=== PATIENT | male | born 1950 | race Hispanic/Latino ===

== ENCOUNTER → 2018-03-17 | Outpatient (CLI) | payer MEDICARE ==
[~2018-03-17] VITALS: Ht 167.6 cm; Wt 83.5 kg
[~2018-03-17] MED LIST: REGADENOSON 0.4 MG/5 ML PF SYG IVP SCH
== END | disposition home or self-care (01) ==
LOC: SHCH 08:38
PROVIDERS: ATTEND Internal Medicine Cardiovascular Disease
DX: R00.2 Palpitations (principal); R55 Syncope and collapse; I10 Essential (primary) hypertension; E78.5 Hyperlipidemia, unspecified
CPT/HCPCS: 78452; 93017; 96374; A9500 ×2; J2785

== ENCOUNTER → 2018-04-07 | Outpatient (CLI) | payer MEDICARE | END | disposition home or self-care (01) | LOC: SHCH 03-20 08:56 | PROVIDERS: ATTEND Internal Medicine Cardiovascular Disease | DX: R00.2 Palpitations (principal) | CPT/HCPCS: 93306 ==

== ENCOUNTER → 2018-06-16 | Outpatient (CLI) | payer MEDICARE ==
[~2018-06-16] MED LIST changes: +ASPI-555 PO; +ATOR10TA69 PO; +METO25TA6 PO; -REGADENOSON 0.4 MG/5 ML PF SYG IVP SCH; +TAMS0.4C32 PO
== END | disposition home or self-care (01) ==
LOC: RAH 09:19
PROVIDERS: ATTEND Family Medicine
DX: R10.9 Unspecified abdominal pain (principal)
CPT/HCPCS: 76700

== ENCOUNTER → 2018-09-16 | Outpatient (CLI) | payer MEDICARE | END | disposition home or self-care (01) | LOC: SHCH 14:49 | PROVIDERS: ATTEND Internal Medicine Cardiovascular Disease | DX: I51.7 Cardiomegaly (principal); I25.10 Atherosclerotic heart disease of native coronary artery without angina pectoris | CPT/HCPCS: 93306 ==

== ENCOUNTER → 2019-05-31 | Outpatient (CLI) | payer MEDICARE | END | disposition home or self-care (01) | LOC: SHCH 13:30 | PROVIDERS: ATTEND Internal Medicine Cardiovascular Disease | DX: I51.7 Cardiomegaly (principal) | CPT/HCPCS: 93306 ==

== ENCOUNTER → 2019-06-09 | Outpatient (CLI) | payer MEDICARE ==
--- NOTE | 2019-06-05 12:06 | NUR ---
PT WAS A NO SHOW FOR THIS DATE OF SERVICE
--- NOTE | 2019-06-08 11:00 | NUR ---
PT WAS A NO SHOW ON THIS DATE OF SERVICE
[~2019-06-09] VITALS: Ht 167.6 cm; Wt 89.4 kg
[~2019-06-09] MED LIST changes: +REGADENOSON 0.4 MG/5 ML PF SYG IVP SCH
== END | disposition home or self-care (01) ==
LOC: SHCH 08:08
PROVIDERS: ATTEND Internal Medicine Cardiovascular Disease
DX: R07.9 Chest pain, unspecified (principal)
CPT/HCPCS: 78452; 93017; 96374; A9500 ×2; J2785

== ENCOUNTER → 2019-11-18 | Outpatient (CLI) | payer MEDICARE ==
[~2019-11-18] MED LIST changes: -ASPI-555 PO; +ASPI-556 PO; -REGADENOSON 0.4 MG/5 ML PF SYG IVP SCH
== END | disposition home or self-care (01) ==
LOC: SHCH 10:35
PROVIDERS: ATTEND Internal Medicine Cardiovascular Disease
DX: I65.23 Occlusion and stenosis of bilateral carotid arteries (principal)
CPT/HCPCS: 93880

== ENCOUNTER 2020-08-14 12:23 | Emergency (ER) | payer OTHER, MEDICARE ==
[2020-08-14] MEDS ORDERED: KETOROLAC TROMETHAMINE 30MG/ML ONE (13:33)
[2020-08-14] MEDS ORDERED: ACETAMINOPHEN-CODEINE 300/30MG TAB ONE (13:34)
== END 2020-08-14 14:50 | disposition home or self-care (01) ==
LOC: EDH 12:23
DX: M54.2 Cervicalgia (principal); I10 Essential (primary) hypertension; E78.00 Pure hypercholesterolemia, unspecified
CPT/HCPCS: 72040; 93005; 96372; 99283; J1885

== ENCOUNTER 2021-03-22 22:14 | Emergency (ER) | payer OTHER, MEDICARE ==
[2021-03-22 23:01] LABS: BASOPHILS % (AUTO) 0.7 % (0.0-5.0); EOSINOPHILS % (AUTO) 1.1 % (0.0-8.0); HEMATOCRIT 39.9 % (42-54); LYMPHOCYTES % (AUTO) 18.9 % (21.0-51.0); MEAN CORPUSCULAR HEMOGLOBIN 26.9 pg (27.0-33.0); MEAN CORPUSCULAR HGB CONC 32.6 g/dL (32.0-36.0); MEAN CORPUSCULAR VOLUME 82.4 fL (79-99); MONOCYTES % (AUTO) 9.2 % (3.0-13.0); NEUTROPHILS % (AUTO) 69.8 % (40.0-77.0); PLATELET COUNT (AUTO) 172 K/uL (130-400); RED BLOOD CELL COUNT(AUTO) 4.84 MIL/uL (4.50-6.20); WHITE BLOOD COUNT (AUTO) 7.2 K/uL (4.8-10.8)
[2021-03-22 23:09] LABS: POTASSIUM 4.2 mmol/L (3.5-5.1)
[2021-03-22 23:11] LABS: INR 0.95 (0.85-1.15); PROTHROMBIN TIME 10.4 SEC (9.6-11.6)
[2021-03-22 23:13] LABS: ALBUMIN 3.7 g/dL (3.5-5.0); BILIRUBIN,TOTAL 0.2 mg/dL (0.2-1.0); TOTAL PROTEIN, SERUM 7.2 g/dL (6.0-8.3)
[2021-03-22 23:38] LABS: B-TYPE NATRIURETIC PEPTIDE 33 pg/mL (0-100)
[2021-03-22 23:57] LABS: APPEARANCE,URINE Clear (CLEAR); BILIRUBIN,URINE Negative (NEGATIVE); COLOR,URINE Yellow (YELLOW); GLUCOSE, URINE (UA) Negative (NEGATIVE); KETONES,URINE Negative (NEGATIVE); LEUKOCYTE ESTERASE ,URINE Negative (NEGATIVE); NITRATE,URINE Negative (NEGATIVE); OCCULT BLOOD,URINE Negative (NEGATIVE); PH,URINE 5.5 (5.0-8.0); PROTEIN,URINE Negative (NEGATIVE)
[2021-03-23 00:04] LABS: AMPHET/METH SCREEN,URINE NEGATIVE (NEGATIVE); BARBITURATE SCREEN, URINE NEGATIVE (NEGATIVE); BENZODIAZEPINES SCREEN,URINE NEGATIVE (NEGATIVE); CANNABINOID SCREEN,URINE NEGATIVE (NEGATIVE); COCAINE SCREEN,URINE NEGATIVE (NEGATIVE); OPIATE SCREEN,URINE NEGATIVE (NEGATIVE); PHENCYCLIDINE SCREEN,URINE NEGATIVE (NEGATIVE)
[2021-03-23] MEDS ORDERED: AZIT250T9 PO (01:22)
[2021-03-23] MEDS ORDERED: BENZ-17 PO (01:22)
[2021-03-23 01:30] VITALS: BP 139/76
[2021-03-23] MEDS ORDERED: AZITHROMYCIN 250 MG TABLET PO ONE (01:30)
== END 2021-03-23 01:35 | disposition home or self-care (01) ==
LOC: EDH 22:14
DX: J40 Bronchitis, not specified as acute or chronic (principal); R07.89 Other chest pain; R05.9 Cough, unspecified; E11.9 Type 2 diabetes mellitus without complications; E78.5 Hyperlipidemia, unspecified; I11.9 Hypertensive heart disease without heart failure; I25.10 Atherosclerotic heart disease of native coronary artery without angina pectoris; Z79.82 Long term (current) use of aspirin; Z79.899 Other long term (current) drug therapy; F17.200 Nicotine dependence, unspecified, uncomplicated; Z95.5 Presence of coronary angioplasty implant and graft
CPT/HCPCS: 36415; 71045; 80053; 80305; 81003; 83690; 83880; 84484; 85025; 85610; 93005

== ENCOUNTER → 2021-05-16 | Outpatient (CLI) | payer OTHER, MEDICARE ==
[~2021-05-16] MED LIST changes: +AZIT250T9 PO; +BENZ-17 PO; +REGADENOSON 0.4 MG/5 ML PF SYG IVP SCH
== END | disposition home or self-care (01) ==
LOC: SHCH 08:39
PROVIDERS: ATTEND Internal Medicine Cardiovascular Disease
DX: R07.9 Chest pain, unspecified (principal)
CPT/HCPCS: 78452; 93017; 96374; A9500 ×2; J2785

== ENCOUNTER 2021-10-24 19:22 | Observation (INO) | payer OTHER, MEDICARE ==
[~2021-10-24] VITALS: Ht 167.6 cm; Wt 114.1 kg
[~2021-10-24 19:22] MED LIST changes: -REGADENOSON 0.4 MG/5 ML PF SYG IVP SCH
[2021-10-24] MEDS ORDERED: ACETAMINOPHEN 325 MG TAB ONE (19:40)
[2021-10-24 19:59] LABS: BASOPHILS % (AUTO) 0.5 % (0.0-5.0); HEMATOCRIT 44.3 % (42-54); LYMPHOCYTES % (AUTO) 13.5 % (21.0-51.0); MEAN CORPUSCULAR HEMOGLOBIN 27.5 pg (27.0-33.0); MEAN CORPUSCULAR HGB CONC 33.4 g/dL (32.0-36.0); MEAN CORPUSCULAR VOLUME 82.2 fL (79-99); MONOCYTES % (AUTO) 8.2 % (3.0-13.0); NEUTROPHILS % (AUTO) 77.3 % (40.0-77.0); PLATELET COUNT (AUTO) 147 K/uL (130-400); RED BLOOD CELL COUNT(AUTO) 5.39 MIL/uL (4.50-6.20); RED CELL DISTRIBUTION WIDTH 16.5 % (11.0-15.5); WHITE BLOOD COUNT (AUTO) 7.7 K/uL (4.8-10.8)
[2021-10-24 20:11] LABS: POTASSIUM 3.2 mmol/L (3.5-5.1)
[2021-10-24 20:20] LABS: ALBUMIN 3.3 g/dL (3.5-5.0); BILIRUBIN,TOTAL 0.8 mg/dL (0.2-1.0); TOTAL PROTEIN, SERUM 6.9 g/dL (6.0-8.3)
[2021-10-24 20:21] LABS: B-TYPE NATRIURETIC PEPTIDE 123 pg/mL (0-100)
[2021-10-24 21:25] LABS: APPEARANCE,URINE Clear (CLEAR); BILIRUBIN,URINE Negative (NEGATIVE); COLOR,URINE Dark Yellow (YELLOW); GLUCOSE, URINE (UA) TRACE mg/dL (NEGATIVE); KETONES,URINE 15 mg/dL (NEGATIVE); LEUKOCYTE ESTERASE ,URINE Negative (NEGATIVE); NITRATE,URINE Negative (NEGATIVE); OCCULT BLOOD,URINE Negative (NEGATIVE); PROTEIN,URINE POS 1+ mg/dL (NEGATIVE)
[2021-10-24] MEDS ORDERED: 0.9%NACL 1000ML 1,000 ML IV ONE (21:30)
[2021-10-24 21:41] LABS: BACTERIA,URINE Rare /HPF (None Seen); MUCUS,URINE Moderate LPF (None Seen); RBC,URINE 0-1 /HPF (0-1); SQUAMOUS EPITHELIAL CELL,UR Few /HPF (0-2); WBC,URINE 0-1 /HPF (0-1)
[2021-10-24] MEDS ORDERED: ACETAMINOPHEN 650 MG SUPPOSITORY RC PRN (23:00)
[2021-10-24] MEDS ORDERED: CLONIDINE HCL 0.1 MG TABLET PO PRN (23:00)
[2021-10-24] MEDS ORDERED: LACTULOSE 20 GM/30 ML UDCUP PO PRN (23:00)
[2021-10-24] MEDS ORDERED: TEMAZEPAM 15 MG CAPSULE PO PRN (23:00)
[2021-10-24] MEDS ORDERED: DOCUSATE SODIUM 100 MG CAP PO PRN (23:00)
[2021-10-24] MEDS ORDERED: ONDANSETRON 4MG INJ IVP PRN (23:00)
[2021-10-24] MEDS: LACTATED RINGERS 1000ML 1,000 ML IV SCH (23:16)
[2021-10-24] MEDS: CEFTRIAXONE 1G VIAL IVP SCH (23:16)
[2021-10-24] MEDS: TRAMADOL HCL 50 MG TABLET PO PRN (23:16)
[2021-10-25] MEDS: AZITHROMYCIN 500MG+NS 250ML 250 ML IV SCH ×2 (00:39→21:52)
[2021-10-25] MEDS ORDERED: IBUPROFEN 600 MG TABLET ONE (00:42)
[2021-10-25] MEDS: IPRATROPIUM/ALBUTEROL SULFATE 3 ML SOLUTION IH SCH ×5 (01:31→23:04)
[2021-10-25 06:44] LABS: BASOPHILS % (AUTO) 0.4 % (0.0-5.0); LYMPHOCYTES % (AUTO) 13.3 % (21.0-51.0); MEAN CORPUSCULAR HGB CONC 32.6 g/dL (32.0-36.0); MEAN CORPUSCULAR VOLUME 82.9 fL (79-99); MONOCYTES % (AUTO) 5.3 % (3.0-13.0); NEUTROPHILS % (AUTO) 80.3 % (40.0-77.0); PLATELET COUNT (AUTO) 123 K/uL (130-400); RED BLOOD CELL COUNT(AUTO) 5.19 MIL/uL (4.50-6.20); RED CELL DISTRIBUTION WIDTH 16.5 % (11.0-15.5); WHITE BLOOD COUNT (AUTO) 7.2 K/uL (4.8-10.8)
[2021-10-25 06:55] LABS: CREATININE 0.9 mg/dL (0.5-1.5); MAGNESIUM 1.9 mg/dL (1.80-2.40); PHOSPHORUS 3.6 mg/dL (2.5-4.9); POTASSIUM 3.2 mmol/L (3.5-5.1)
[2021-10-25 07:18] LABS: B-TYPE NATRIURETIC PEPTIDE 150 pg/mL (0-100)
[2021-10-25] MEDS: LACTATED RINGERS 1000ML 1,000 ML IV SCH ×3 (07:32→21:52)
[2021-10-25] MEDS: METOPROLOL TARTRATE 25 MG TAB PO SCH ×2 (08:47→21:54)
[2021-10-25] MEDS: PANTOPRAZOLE 40 MG TAB DR PO SCH (08:47)
[2021-10-25] MEDS: ENOXAPARIN SODIUM 40 MG/0.4 ML SYRINGE SQ SCH (08:47)
[2021-10-25] MEDS: ASPIRIN 81MG CHEW TAB PO SCH (08:47)
[2021-10-25] MEDS: PREDNISONE 20 MG TABLET PO SCH (08:47)
[2021-10-25] MEDS: ACETAMINOPHEN 325 MG TAB PO PRN (08:48)
[2021-10-25] MEDS ORDERED: AZITHROMYCIN 500MG+NS 250ML IV SCH (09:00)
[2021-10-25] MEDS: GUAIFENESIN-DM 200/20 MG 10 ML PO PRN ×2 (09:11→22:14)
[2021-10-25 10:24] LABS: HEMOGLOBIN A1C 6.8 % (4.0-6.0)
[2021-10-25 10:30] VITALS: BP 127/58
[2021-10-25 11:50] LABS: PROTHROMBIN TIME 10.9 SEC (9.6-11.6)
[2021-10-25 11:51] LABS: PARTIAL THROMBOPLASTIN TIME 32.9 SEC (26.3-35.5)
[2021-10-25 16:00] VITALS: BP 126/61
[2021-10-25] MEDS: ACETYLCYSTEINE 10% 100MG/ML 4ML VIAL IH SCH ×2 (18:37→23:04)
[2021-10-25 19:00] VITALS: BP 135/62
[2021-10-25] MEDS ORDERED: 0.9% NACL 250ML 250 ML ONE (21:07)
[2021-10-25] MEDS: CEFTRIAXONE 1G VIAL IVP SCH (21:54)
[2021-10-25] MEDS: TRAMADOL HCL 50 MG TABLET PO PRN (21:55)
[2021-10-26] VITALS: BP 138/63
[2021-10-26] MEDS: GUAIFENESIN-DM 200/20 MG 10 ML PO PRN (03:41)
[2021-10-26] MEDS: ACETAMINOPHEN 325 MG TAB PO PRN (03:42)
[2021-10-26 04:00] VITALS: BP 132/69
[2021-10-26 05:24] LABS: BASOPHILS % (AUTO) 0.4 % (0.0-5.0); HEMATOCRIT 36.8 % (42-54); LYMPHOCYTES % (AUTO) 16.9 % (21.0-51.0); MEAN CORPUSCULAR HEMOGLOBIN 27.4 pg (27.0-33.0); MEAN CORPUSCULAR HGB CONC 33.7 g/dL (32.0-36.0); MEAN CORPUSCULAR VOLUME 81.4 fL (79-99); MONOCYTES % (AUTO) 8.5 % (3.0-13.0); NEUTROPHILS % (AUTO) 73.8 % (40.0-77.0); PLATELET COUNT (AUTO) 107 K/uL (130-400); RED BLOOD CELL COUNT(AUTO) 4.52 MIL/uL (4.50-6.20); RED CELL DISTRIBUTION WIDTH 16.2 % (11.0-15.5); WHITE BLOOD COUNT (AUTO) 7.3 K/uL (4.8-10.8)
[2021-10-26 05:47] LABS: ALBUMIN 2.6 g/dL (3.5-5.0); BILIRUBIN,TOTAL 0.4 mg/dL (0.2-1.0); CREATININE 0.9 mg/dL (0.5-1.5); TOTAL PROTEIN, SERUM 5.6 g/dL (6.0-8.3)
[2021-10-26] MEDS ORDERED: LIDOCAINE HCL-MPF 1% 2ML VIAL IV PRN (06:30)
[2021-10-26] MEDS ORDERED: KCL 20 MEQ ERTAB PO PRN (06:30)
[2021-10-26] MEDS ORDERED: MAGNESIUM 2GM PREMIX 50ML 50 ML IV PRN (06:30)
[2021-10-26] MEDS ORDERED: POTASSIUM CHLORIDE 10% ELIXIR 20 MEQ/15 ML UDCUP PO PRN (06:30)
[2021-10-26] MEDS ORDERED: POTASSIUM CHLORIDE 20MEQ/100ML 100 ML IV PRN (06:30)
[2021-10-26 06:53] VITALS: BP 134/62
[2021-10-26] MEDS: IPRATROPIUM/ALBUTEROL SULFATE 3 ML SOLUTION IH SCH (07:06)
[2021-10-26] MEDS: ASPIRIN 81MG CHEW TAB PO SCH (09:06)
[2021-10-26] MEDS: PANTOPRAZOLE 40 MG TAB DR PO SCH (09:07)
[2021-10-26] MEDS: PREDNISONE 20 MG TABLET PO SCH (09:07)
[2021-10-26] MEDS: ENOXAPARIN SODIUM 40 MG/0.4 ML SYRINGE SQ SCH (09:08)
[2021-10-26] MEDS: METOPROLOL TARTRATE 25 MG TAB PO SCH (09:08)
[2021-10-26] MEDS: LACTATED RINGERS 1000ML 1,000 ML IV SCH (09:08)
== END 2021-10-26 11:15 | disposition left against medical advice (07) ==
LOC: EDH 19:22 → EDHIP 22:46 → 3CH 10-25 09:35 → 3AH 10-25 09:42
PROVIDERS: ADMIT Internal Medicine; ATTEND Internal Medicine
DX: J18.9 Pneumonia, unspecified organism (principal); Z20.822 Contact with and (suspected) exposure to COVID-19; E87.1 Hypo-osmolality and hyponatremia; N40.0 Benign prostatic hyperplasia without lower urinary tract symptoms; E66.9 Obesity, unspecified; E87.6 Hypokalemia; B34.9 Viral infection, unspecified; R50.9 Fever, unspecified; J20.9 Acute bronchitis, unspecified; E11.9 Type 2 diabetes mellitus without complications; E78.00 Pure hypercholesterolemia, unspecified; E78.5 Hyperlipidemia, unspecified; K29.70 Gastritis, unspecified, without bleeding; I10 Essential (primary) hypertension; Z68.41 Body mass index [BMI] 40.0-44.9, adult; Z95.5 Presence of coronary angioplasty implant and graft; Z95.1 Presence of aortocoronary bypass graft; Z79.82 Long term (current) use of aspirin
CPT/HCPCS: 36415 ×3; 71045; 71250; 80048; 80053 ×2; 81001; 82550; 83036; 83605; 83615; 83735 ×2; 83880 ×2; 84100; 84145; 84484; 85025 ×3; 85378; 85610; 85651; 85730; 87040 ×2; 87071; 87077; 87116; 87186; 87205; 87206; 87635; 87804 ×2; 93005; 94640 ×6; 94664; 94667; 94668 ×2; 96361 ×2; 96365; 96366 ×3; 96367; 96372 ×2; 96375; 96376; 99285; C9803; G0378 ×34; J0456 ×2; J0696 ×2; J1650 ×2; J3475; J7050; J7120 ×3; J7608 ×3; U0003